=== PATIENT | female | born 1990 | race African-American/Black ===

== ENCOUNTER 2017-11-25 09:31 | Emergency (ER) | payer OTHER ==
[~2017-11-25] VITALS: Ht 167.6 cm; Wt 108.9 kg
[~2017-11-25 09:31] MED LIST: CIPROFLOXACIN500 M1 PO; CLEOCIN HCL150 MG PO; TRAMADOL 50 MG50 MG PO
[2017-11-25] MEDS ORDERED: MUCINEX DM ER1 EACH PO (11:22)
[2017-11-25] MEDS ORDERED: PROMETHAZINE/C118 ML PO (11:22)
[2017-11-25 11:30] VITALS: BP 138/99
== END 2017-11-25 11:31 | disposition home or self-care (01) ==
LOC: ER 09:31
DX: J06.9 Acute upper respiratory infection, unspecified (principal)

== ENCOUNTER 2018-06-04 00:21 | Emergency (ER) | payer OTHER ==
[~2018-06-04] VITALS: Ht 170.2 cm; Wt 108.9 kg
[~2018-06-04 00:21] MED LIST changes: +MUCINEX DM ER1 EACH PO; +PROMETHAZINE/C118 ML PO
[2018-06-04 00:34] VITALS: BP 149/107
[2018-06-04 00:55] LABS: URINE BILIRUBIN NEGATIVE (Negative); URINE BLOOD NEGATIVE (Negative); URINE CLARITY CLEAR; URINE COLOR YELLOW; URINE GLUCOSE-RANDOM* NEGATIVE (Negative); URINE KETONES TRACE (Negative); URINE NITRITE-REFLEX NEGATIVE (Negative); URINE PROTEIN (DIPSTICK) NEGATIVE (Negative); URINE SPECIFIC GRAVITY 1.025 (1.005-1.035); URINE UROBILINOGEN 0.2 E.U./dl (0.2-1.0)
[2018-06-04 01:09] LABS: URINE LEUKOCYTES-REFLEX 3+ (Negative)
[2018-06-04 01:24] LABS: BACTERIA-REFLEX 1-9 Few /HPF (None Seen); CASTS None Seen /LPF (None Seen); SQUAMOUS >10 Many /LPF (0-3); URINE RBC 3-10 Few /HPF (0-2); URINE WBC-REFLEX >25 Many /HPF (0-5)
[2018-06-04 01:25] LABS: AMORPHOUS URATES Moderate /LPF (None Seen)
[2018-06-04] MEDS ORDERED: ACYCLOVIR 400400 MG PO (01:45)
[2018-06-04] MEDS ORDERED: FLAGYL500 MG PO (01:45)
[2018-06-05 09:59] LABS: HSV PCR SOURCE VULVA
[2018-06-07 17:08] LABS: HSV 1 DNA Negative (Negative); HSV 2 DNA Positive (Negative)
== END 2018-06-04 02:30 | disposition home or self-care (01) ==
LOC: ER 00:21
PROVIDERS: Emergency Medicine
DX: A59.9 Trichomoniasis, unspecified (principal)